=== PATIENT | male | born 1960 | race Caucasian/White ===

== ENCOUNTER → 2021-02-27 15:56 | Outpatient (BNVA) | payer SELFPAY | PROVIDERS: Visit Provider Nurse Practitioner | DX: S59.901A Unspecified injury of right elbow, initial encounter (principal); W19.XXXA Unspecified fall, initial encounter | CPT/HCPCS: 73080 ==

== ENCOUNTER 2021-03-06 08:07 | Outpatient (CLI) | payer SELFPAY | END 2021-03-06 08:08 | disposition home or self-care (01) | LOC: WOUND 08:09 | PROVIDERS: Visit Provider Nurse Practitioner Family | DX: L98.492 Non-pressure chronic ulcer of skin of other sites with fat layer exposed (principal) ==

== ENCOUNTER 2021-03-20 08:01 | Outpatient (CLI) | payer MEDICAID, SELFPAY | END 2021-03-20 08:02 | disposition home or self-care (01) | LOC: WOUND 08:03 | PROVIDERS: Visit Provider Thoracic Surgery (Cardiothoracic Vascular Surgery) | DX: S51.001A Unspecified open wound of right elbow, initial encounter (principal); V19.9XXA Pedal cyclist (driver) (passenger) injured in unspecified traffic accident, initial encounter; Y93.55 Activity, bike riding; Y92.9 Unspecified place or not applicable | CPT/HCPCS: G0463 ==